=== PATIENT | female | born 1990 ===

== ENCOUNTER 2021-10-27 19:42 | Outpatient (CLI) | payer BC, SELFPAY ==
[2021-10-27 20:53] LABS: Alanine Aminotransferase* 18 U/L (4-35); Aspartate Amino Transferase* 25 U/L (12-35)
[2021-10-27 21:35] LABS: Chlamydia DNA Amplified* NOT DETECTED (No Detected); GC DNA Amplified* NOT DETECTED (No Detected)
== END 2021-10-27 19:43 | disposition home or self-care (01) ==
PROVIDERS: Visit Provider Registered Nurse
DX: Z01.818 Encounter for other preprocedural examination (principal); Z72.89 Other problems related to lifestyle; Z12.4 Encounter for screening for malignant neoplasm of cervix
CPT/HCPCS: 84450; 84460; 87491; 87591; 87624; 88175